=== PATIENT | female | born 1955 | race Caucasian/White ===

== ENCOUNTER 2016-11-10 18:17 | Observation (INO) | payer BC, OTHER ==
[2016-11-10] MEDS ORDERED: Nitroglycerin 2% Oint 1 GM UD Packet TOP ONE (18:54)
[2016-11-10] MEDS ORDERED: Pantoprazole 40 MG Vial IVPUSH ONE (18:55)
[2016-11-10] MEDS ORDERED: Ondansetron 4 MG/2 ML SDV IVPUSH ONE (18:55)
[2016-11-10] MEDS ORDERED: cloNIDine 0.1 MG Tab PO ONE (19:08)
[2016-11-10] MEDS ORDERED: Aspirin 81 MG Tab.Chew PO ONE (19:10)
--- NOTE | 2016-11-10 19:17 | EDM.PDOC ---
ED HISTORY OF PRESENT ILLNESS - General Chief Complaint: Chest Pain Stated Complaint: CHEST PAIN Time Seen by Provider: 11/10/16 18:17 Source: Reports: Patient History Limitations: Reports: No limitations - History of Present Illness INITIAL COMMENTS - FREE TEXT/NARRATIVE: 61 years old w f came to the ed due to Nausea, neck pressure?squeezing, abdominal pain. Her BPwas 188/89 on arrival. Pt has a strong F/H of CAD. Pt has HTN since age 39. Last upper GI was done 2 years ago and found to be neg. Symptom Onset Date: 11/10/16 Symptom Onset Time: 13:00 - Related Data Allergies/ADRs: Allergies Allergy/AdvReac Type Severity Reaction Status Date / Time No Known Allergies Allergy Verified 11/10/16 20:06 Home Meds: Home Meds Citalopram [Citalopram HBr] 20 mg PO DAILY 11/10/16 [History] Hydrochlorothiazide 25 mg PO DAILY 11/10/16 [History] Lisinopril 40 mg PO DAILY 11/10/16 [History] Metoprolol Succinate [Toprol XL] 200 mg PO DAILY 11/10/16 [History] Simvastatin 20 mg PO BEDTIME 11/10/16 [History] Nitroglycerin [Nitrostat] 0.4 mg SL 5X PRN #25 tab.subl 11/11/16 [Rx] Omeprazole Magnesium [Prilosec Otc] 20 mg PO DAILY #0 tablet.dr 11/11/16 [Rx] ED ROS GENERAL - Review of Systems Review Of Systems: See Below Constitutional: Reports: no symptoms HEENT: Reports: No symptoms Respiratory: Reports: no symptoms Cardiovascular: Reports: Chest pain, Palpitations Endocrine: Reports: no symptoms GI/Abdominal: Reports: No symptoms, Abdominal pain (epigastric) : Reports: no symptoms Musculoskeletal: Reports: no symptoms Skin: Reports: no symptoms Neurological: Reports: no symptoms Hematologic/Lymphatic: Reports: no symptoms Immunologic: Reports: no symptoms ED EXAM, GENERAL - Physical Exam Exam: See Below Exam Limited By: No limitations General Appearance: alert, WD/WN, mild distress Ears: normal external exam, normal canal, hearing grossly normal, normal TMs Ear Exam: bilateral ear: auricle normal, canal normal, TM normal Nose: normal inspection, normal mucosa, no blood Throat/Mouth: Normal inspection, Normal lips, Normal teeth, Normal gums, Normal oropharynx, Normal voice, No airway compromise Head: atraumatic, normocephalic Neck: normal inspection, supple, non-tender, full range of motion Respiratory/Chest: no respiratory distress, lungs clear, normal breath sounds, no accessory muscle use, chest non-tender Cardiovascular: normal peripheral pulses, regular rate, rhythm, no edema, no gallop, no JVD, no murmur, no rub GI/Abdominal: normal bowel sounds, no organomegaly, no distention, no abnormal bruit, no mass, tender (epigastric) (Female) Exam: Deferred Rectal (Female) Exam: Deferred Back Exam: normal inspection, full range of motion, NT Extremities: normal inspection, normal range of motion, non-tender, normal capillary refill, no pedal edema Neurological: alert, oriented, CN II-XII intact, normal cognition, normal gait, normal reflexes, no motor/sensory deficits Psychiatric: normal affect, normal mood Skin Exam: Warm, Dry, Intact, Normal color, No rash Lymphatic: no adenopathy EKG INTERPRETATION EKG Date: 11/10/16 Time: 18:55 Rhythm: NSR Rate (beats/min): 77 [place]: normal P-wave: present QRS: normal ST-T: normal QT: normal ID/PQ Interval: 206, prolonged Comparison: NA - no prior EKG Course - Vital Signs Text/Narrative:: 61 years old w f came to the ed due to Nausea, neck pressure?squeezing, abdominal pain. Her BPwas 188/89 on arrival. Pt has a strong F/H of CAD. Pt has HTN since age 39. Last upper GI was done 2 years ago and found to be neg. PE: HTN, Angina like symptoms ECG: See note above Labs: CBC, Trop, D Dimer imaging: CXR NAD Impression: Unstable angina Tx: Clonidin, ASA, Lovenox, NTG Reexam: Improved Plan: Admit to [facility] for OBS Last Recorded V/S: Last Vital Signs Temp 36.9 C 11/11/16 12:00 Pulse 61 11/11/16 12:00 Resp 20 11/11/16 12:00 BP 140/82 11/11/16 12:00 Pulse Ox 97 11/11/16 12:00 - Orders/Labs/Meds Labs: Laboratory Tests 0311/10/16 11/10/16 Range/Units 18:55 18:55 18:55 WBC 6.4 (4.5-12.0) X10-3/uL RBC 4.94 (3.23-5.20) x10(6)uL Hgb 14.5 (11.5-15.5) g/dL Hct 43.2 (30.0-51.3) % MCV 87.4 (80-96) fL MCH 29.4 (27.7-33.6) pg MCHC 33.6 (32.2-35.4) g/dL RDW 12.1 (11.5-15.5) % Plt Count 210 (125-369) X10(3)uL MPV 9.0 (7.4-10.4) fL Neut % (Auto) 58.1 (46-82) % Lymph % (Auto) 28.0 (13-37) % [place] % (Auto) 11.2 (4-12) % Eos % (Auto) 2 (1.0-5.0) % Baso % (Auto) 1 (0-2) % Neut # 3.8 (1.6-8.3) # Lymph # 1.8 (0.6-5.0) # [place] # 0.7 (0.0-1.3) # Eos # 0.1 (0.0-0.8) # Baso # 0.0 (0.0-0.2) # D-Dimer, Quantitative < 100 L (100-400) ng/mL Sodium 138 (135-145) mmol/L Potassium 3.8 (3.5-5.3) mmol/L Chloride 104 (100-110) mmol/L Carbon Dioxide 28 (23-29) mmol/L BUN 14 (8-23) mg/dL Creatinine 0.8 (0.6-1.3) mg/dL Est Cr Clr Drug Dosing TNP Estimated GFR (MDRD) > 60 (>60) BUN/Creatinine Ratio 17.5 (9-20) Glucose 122 H (80-116) mg/dL Calcium 9.1 (8.6-10.2) mg/dL Total Bilirubin 0.2 (0.1-1.3) mg/dL Direct Bilirubin 0.0 L (0.1-0.2) mg/dL AST 26 (5-27) IU/L ALT 29 H (14-26) IU/L Alkaline Phosphatase 77 (56-112) IU/L Troponin I (0.02-0.06) NG/ML Total Protein 7.0 (6.0-8.0) g/dL Albumin 4.2 (3.2-4.6) g/dL Amylase 76 (28-100) U/L 11/10/16 Range/Units 18:55 WBC (4.5-12.0) X10-3/uL RBC (3.23-5.20) x10(6)uL Hgb (11.5-15.5) g/dL Hct (30.0-51.3) % MCV (80-96) fL MCH (27.7-33.6) pg MCHC (32.2-35.4) g/dL RDW (11.5-15.5) % Plt Count (125-369) X10(3)uL MPV (7.4-10.4) fL Neut % (Auto) (46-82) % Lymph % (Auto) (13-37) % [place] % (Auto) (4-12) % Eos % (Auto) (1.0-5.0) % Baso % (Auto) (0-2) % Neut # (1.6-8.3) # Lymph # (0.6-5.0) # [place] # (0.0-1.3) # Eos # (0.0-0.8) # Baso # (0.0-0.2) # D-Dimer, Quantitative (100-400) ng/mL Sodium (135-145) mmol/L Potassium (3.5-5.3) mmol/L Chloride (100-110) mmol/L Carbon Dioxide (23-29) mmol/L BUN (8-23) mg/dL Creatinine (0.6-1.3) mg/dL Est Cr Clr Drug Dosing Estimated GFR (MDRD) (>60) BUN/Creatinine Ratio (9-20) Glucose (80-116) mg/dL Calcium (8.6-10.2) mg/dL Total Bilirubin (0.1-1.3) mg/dL Direct Bilirubin (0.1-0.2) mg/dL AST (5-27) IU/L ALT (14-26) IU/L Alkaline Phosphatase (56-112) IU/L Troponin I < 0.01 L (0.02-0.06) NG/ML Total Protein (6.0-8.0) g/dL Albumin (3.2-4.6) g/dL Amylase (28-100) U/L Meds: Medications Discontinued Medications Generic Name Dose Route Start Last Admin Trade Name Freq PRN Reason Stop Dose Admin Al Hydroxide/Mg Hydroxide 30 ml 11/11/16 11:00 11/11/16 11:10 Mag-Al Susp PO 30 ml Q4H PRN Administration upset stomach Aspirin 324 mg 11/10/16 19:10 11/10/16 19:15 Aspirin PO 11/10/16 19:11 324 mg ONETIME ONE Administration Citalopram Hydrobromide 20 mg 11/11/16 10:15 11/11/16 10:39 Celexa PO 20 mg DAILY ANDRÉS Administration Clonidine HCl 0.1 mg 11/10/16 19:08 11/10/16 19:19 Catapres PO 11/10/16 19:09 0.1 mg ONETIME ONE Administration Enoxaparin Sodium 91 mg 11/10/16 20:34 11/10/16 20:58 Lovenox SUBCUT 11/10/16 20:35 91 mg ONETIME ONE Administration Hydrochlorothiazide 25 mg 11/11/16 10:15 11/11/16 10:39 Hydrochlorothiazide PO 25 mg DAILY ANDRÉS Administration Lisinopril 40 mg 11/11/16 10:15 11/11/16 10:39 Prinivil PO 40 mg DAILY ANDRÉS Administration Metoprolol Succinate 200 mg 11/11/16 10:15 11/11/16 10:39 Toprol Xl PO 200 mg DAILY ANDRÉS Administration Nitroglycerin 1 gm 11/10/16 18:54 11/10/16 19:17 Nitro-Bid 2% TOP 11/10/16 18:55 1 gm ONETIME ONE Administration Omeprazole 20 mg 11/11/16 10:54 11/11/16 11:10 Omeprazole PO 11/11/16 10:55 20 mg NOW STA Administration Ondansetron HCl 8 mg 11/10/16 18:55 11/10/16 19:35 Zofran IVPUSH 11/10/16 18:56 8 mg ONETIME ONE Administration Pantoprazole Sodium 40 mg 11/10/16 18:55 11/10/16 19:39 Protonix Iv IVPUSH 11/10/16 18:56 40 mg ONETIME ONE Administration Simvastatin 20 mg 11/11/16 21:00 Zocor PO BEDTIME NADRÉS Sodium Chloride 10 ml 11/10/16 19:30 11/10/16 19:46 Saline Flush FLUSH 10 ml ASDIRECTED PRN Administration Keep Vein Open Departure - Departure Time of Disposition: 20:03 Disposition: Refer to Observation Condition: fair Clinical Impression: Chest pain
[2016-11-10] MEDS: Sodium Chloride 0.9% 10 ML Syringe FLUSH PRN ×3 (19:43→19:46)
[2016-11-10] MEDS ORDERED: Enoxaparin 80 MG/0.8 ML Syringe SUBCUT ONE (20:34)
[2016-11-11] MEDS ORDERED: Aspirin 325 MG Tab PO SCH (09:00)
--- NOTE | 2016-11-11 09:02 | PCM.HP ---
H&P History of Present Illness - General Date of Service: 11/11/16 Admit Problem/Dx: Admission Diagnosis/Problem Admission Diagnosis/Problem Chest pain Source of Information: Patient History Limitations: Reports: No limitations - History of Present Illness Initial Comments - Free Text/Narative: This is a 61-year-old female patient that was seen in the ER last night. She states she's had low nausea for 4 days in the last day she had some pressure in the neck area. She was brought to the ER and it resolved with nitroglycerin. She has a history of hypertension and hyperlipidemia. She denies history smoking, diabetes. Her father of [place] age 57. She states she's had a lot of stress at her house. Her sister was diagnosed with dissecting thoracic aneurysm and was transferred to [facility] and should have but survived. The sister and last week his mood and with her has caused a lot of stress. [facility] stated that all of the siblings should be tested for aneurysm. Patient to check her blood pressure has been high and that's when she started having the symptoms. She's been asymptomatic overnight. She denies shortness breath, arm pain, diaphoresis. - Related Data Allergies/Adverse Reactions: Allergies Allergy/AdvReac Type Severity Reaction Status Date / Time No Known Allergies Allergy Verified 11/10/16 20:06 Home Medications: Home Meds Citalopram [Celexa] 20 mg PO DAILY 11/10/16 [History] Hydrochlorothiazide 25 mg PO DAILY 11/10/16 [History] Lisinopril 40 mg PO DAILY 11/10/16 [History] Metoprolol Succinate [Toprol XL] 200 mg PO DAILY 11/10/16 [History] Simvastatin [Simvastatin] 20 mg PO BEDTIME 11/10/16 [History] Past Medical History HEENT History: Reports: Impaired vision, Other (see below) Other HEENT History: otosclerosis Cardiovascular History: Reports: High cholesterol, Hypertension Gastrointestinal History: Reports: GERD Genitourinary History: Reports: Renal calculus 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: Psychiatric History: Reports: Anxiety - Infectious Disease History Infectious Disease History: Reports: Chicken pox, Measles, Mumps - Past Surgical History HEENT Surgical History: Reports: Tonsillectomy, Other (see below) Other HEENT Surgeries/Procedures: right ear surgery for otoslcerosis GI Surgical History: Reports: Cholecystectomy, Colonoscopy, EGD Female Surgical History: Reports: Hysterectomy, Kidney stone extraction Social & Family History - Tobacco Use Smoking Status *Q: Never Smoker - Caffeine Use Caffeine Use: Reports: Coffee - Recreational Drug Use Recreational Drug Use: No H&P Review of Systems - Review of Systems: Review Of Systems: See Below General: Reports: no symptoms HEENT: Reports: other (Neck pain otherwise denied) Pulmonary: Reports: no symptoms Cardiovascular: Reports: no symptoms Gastrointestinal: Reports: No symptoms Genitourinary: Reports: no symptoms Musculoskeletal: Reports: no symptoms Skin: Reports: no symptoms Psychiatric: Reports: anxiety. Denies: depression Neurological: Reports: no symptoms Hematologic/Lymphatic: Reports: no symptoms Immunologic: Reports: no symptoms Exam - Exam Exam: See Below - Vital Signs Vital Signs: Last Vital Signs Temp 97.6 F 11/11/16 01:15 Pulse 74 11/10/16 20:15 Resp 15 11/11/16 04:00 BP 113/66 11/11/16 01:15 Pulse Ox 94 L 11/11/16 04:00 Weight: 199 lb 11.2 oz - Exam General: alert, oriented, cooperative HEENT: PERRLA, Conjunctiva clear, EACs clear, EOMI, Hearing intact, Mucosa moist & pink, Posterior pharynx clear, TMs clear Neck: supple, trachea midline. No: carotid bruit Lungs: Clear to auscultation, Normal respiratory effort Cardiovascular: regular rate, regular rhythm, normal S1, normal S2. No: systolic murmur, diastolic murmur Abdomen: normal bowel sounds, soft. No: organomegaly, guarding, rigidity, rebound, tenderness Back Exam: normal inspection, full range of motion, NT Extremities: normal inspection Skin: warm Neurological: normal speech, normal tone Neuro Extensive - Mental Status: alert, oriented x3, normal mood/affect, normal cognition, memory intact Psychiatric: alert, normal affect, normal mood - Patient Data Lab Results last 24 hrs: Laboratory Results - last 24 hr 11/11/16 Range/Units 01:25 Troponin I < 0.01 L (0.02-0.06) NG/ML Result Diagrams: 11/10/16 18:55 11/10/16 18:55 EKG INTERPRETATION EKG Interpretation Comments: EKG done at 1:20 AM 11/11/16shows normal sinus rhythm with reverse T waves in lead 3 and V1 only. EKG done 1850 on 11/10/16 showed normal sinus rhythm without ST abnormalities. *Q Meaningful Use (ADM) - VTE *Q VTE Criteria *Q: - Stroke *Q Stroke Criteria *Q: - AMI *Q AMI Criteria *Q: - Problem List (1) Chest pain SNOMED Code(s): 27621313 ICD Code: R07.9 - CHEST PAIN, UNSPECIFIED Status: Acute Current Visit: Yes Problem List Initiated/Reviewed/Updated: Yes Orders Last 24hrs: Active Orders 24 hr Category Date Time Status Patient Status [ADT] Routine ADT 11/10/16 20:13 Active Ambulate [RC] PER UNIT ROUTINE Care 11/10/16 20:13 Active EKG Documentation Completion [RC] ASDIRECTED Care 11/10/16 20:19 Active Oxygen Therapy [RC] PRN Care 11/10/16 20:13 Active Pulse Oximetry [RC] PRN Care 11/10/16 20:13 Active Telemetry Monitoring [Cardiac Monitoring] [RC] 08,16,00 Care 11/10/16 20:22 Active Vital Signs [RC] 08,12,16,20,00,04 Care 11/10/16 20:13 Active Code Status [Resuscitation Status] Routine Resus Stat 11/10/16 20:21 Ordered EKG 12 Lead [EK] Routine Ther 11/11/16 01:00 Ordered Medication Orders Sodium Chloride (Saline Flush) 10 ml FLUSH ASDIRECTED PRN PRN Reason: Keep Vein Open Last Admin: 11/10/16 19:46 Dose: 10 ml Admin: 11/10/16 19:44 Dose: 10 ml Admin: 11/10/16 19:43 Dose: 10 ml Assessment/Plan Comment:: 1. Admit observation with telemetry. 2. Serial troponins and EKGs. 3. Okay to take regular medications. 4. Regular diet. 5. Up ad rica. 6. Order echocardiogram to the chest pain and family history of aortic dissection/thoracic
[2016-11-11] MEDS ORDERED: Metoprolol Succinate 100 MG Tab.ER PO SCH (10:15)
[2016-11-11] MEDS ORDERED: Citalopram 20 MG Tab PO SCH (10:15)
[2016-11-11] MEDS ORDERED: Hydrochlorothiazide 25 MG Tab PO SCH (10:15)
[2016-11-11] MEDS ORDERED: Omeprazole 20 MG Cap.CR PO STA (10:54)
[2016-11-11] MEDS ORDERED: Aluminum Hydroxide/Magnesium Hydroxide Susp 30 ML Cup PO PRN (11:00)
[2016-11-11 12:30] VITALS: BP 140/82
--- NOTE | 2016-11-11 12:43 | PCM.SN ---
- Free Text/Narrative Note: Patient feels better. Has no chest pain. We'll nausea after eating that is relieved with Mylanta and Prilosec.
--- NOTE | 2016-11-11 12:48 | PCM.DCSUM1 ---
Discharge Summary - Hospital Course Free Text/Narrative:: Hospital course-patient was asymptomatic tissues at the ER with nitroglycerin paste. Was removed and she's done well overnight with no chest pain. She'll nausea cruciate. Relieved with Prilosec and Mylanta. EKG normal sinus rhythm with nonspecific changes on one out of 3. Troponins x3 are negative. Patient has a lot of stress at home to sister moving in with her for a short time. Brief History: This is a 61-year-old female patient that was seen in the ER last night. She states she's had low nausea for 4 days in the last day she had some pressure in the neck area. She was brought to the ER and it resolved with nitroglycerin. She has a history of hypertension and hyperlipidemia. She denies history smoking, diabetes. Her father of [place] age 57. She states she 's had a lot of stress at her house. Her sister was diagnosed with dissecting thoracic aneurysm and was transferred to [facility] and should have but survived. The sister and last week his mood and with her has caused a lot of stress. [facility] stated that all of the siblings should be tested for aneurysm. Patient to check her blood pressure has been high and that's when she started having the symptoms. She's been asymptomatic overnight. She denies shortness breath, arm pain, diaphoresis. - Discharge Data Discharge Date: 11/11/16 Discharge Disposition: Home, Self-Care 01 Condition: Good - Discharge Diagnosis/Problem(s) (1) Chest pain SNOMED Code(s): 27625082 ICD Code: R07.9 - CHEST PAIN, UNSPECIFIED Status: Acute Current Visit: Yes - Patient Instructions Diet: Regular Diet as Tolerated Activity: As Tolerated Driving: Do Not Drive Showering/Bathing: May Shower Other/Special Instructions: 1. Echocardiogram in the a.m. here at [facility]. 2. Recheck with Dr. Goldman one week with a stress test. - Discharge Plan Prescriptions/Med Rec: Nitroglycerin [Nitrostat] 0.4 mg SL 5XDAY PRN #25 tab.subl PRN Reason: Chest Pain Omeprazole Magnesium [Prilosec Otc] 20 mg PO DAILY #0 tablet. Home Medications: Home Meds Citalopram [Citalopram HBr] 20 mg PO DAILY 11/10/16 [History] Hydrochlorothiazide 25 mg PO DAILY 11/10/16 [History] Lisinopril 40 mg PO DAILY 11/10/16 [History] Metoprolol Succinate [Toprol XL] 200 mg PO DAILY 11/10/16 [History] Simvastatin 20 mg PO BEDTIME 11/10/16 [History] Nitroglycerin [Nitrostat] 0.4 mg SL 5XDAY PRN #25 tab.subl 11/11/16 [Rx] Omeprazole Magnesium [Prilosec Otc] 20 mg PO DAILY #0 tablet. 11/11/16 [Rx] Forms: ED Department Discharge Referrals: Basil Goldman MD [Primary Care Provider] - - Discharge Summary/Plan Comment DC Time >30 min.: No - Patient Data Vitals - Most Recent: Last Vital Signs Temp 98.4 F 11/11/16 12:00 Pulse 61 11/11/16 12:00 Resp 20 11/11/16 12:00 BP 140/82 11/11/16 12:00 Pulse Ox 97 11/11/16 12:00 Weight - Most Recent: 199 lb 11.2 oz I&O - Last 24 hours: Intake & Output 11/10/16 11/11/16 11/11/16 22:59 06:59 14:59 Intake Total 330 Balance 330 Lab Results - Last 24 hrs: Laboratory Results - last 24 hr 11/11/16 11/11/16 Range/Units 01:25 09:30 Troponin I < 0.01 L < 0.01 L (0.02-0.06) NG/ML Med Orders - Current: Current Medications Al Hydroxide/Mg Hydroxide (Mag-Al Susp) 30 ml PO Q4H PRN PRN Reason: upset stomach Last Admin: 11/11/16 11:10 Dose: 30 ml Citalopram Hydrobromide (Celexa) 20 mg PO DAILY [facility] Last Admin: 11/11/16 10:39 Dose: 20 mg Hydrochlorothiazide (Hydrochlorothiazide) 25 mg PO DAILY [facility] Last Admin: 11/11/16 10:39 Dose: 25 mg Lisinopril (Prinivil) 40 mg PO DAILY [facility] Last Admin: 11/11/16 10:39 Dose: 40 mg Metoprolol Succinate (Toprol Xl) 200 mg PO DAILY [facility] Last Admin: 11/11/16 10:39 Dose: 200 mg Simvastatin (Zocor) 20 mg PO BEDTIME ANDRÉS Sodium Chloride (Saline Flush) 10 ml FLUSH ASDIRECTED PRN PRN Reason: Keep Vein Open Last Admin: 11/10/16 19:46 Dose: 10 ml Discontinued Medications Aspirin (Aspirin) 324 mg PO ONETIME ONE Stop: 11/10/16 19:11 Last Admin: 11/10/16 19:15 Dose: 324 mg Clonidine HCl (Catapres) 0.1 mg PO ONETIME ONE Stop: 11/10/16 19:09 Last Admin: 11/10/16 19:19 Dose: 0.1 mg Enoxaparin Sodium (Lovenox) 91 mg SUBCUT ONETIME ONE Stop: 11/10/16 20:35 Last Admin: 11/10/16 20:58 Dose: 91 mg Nitroglycerin (Nitro-Bid 2%) 1 gm TOP ONETIME ONE Stop: 11/10/16 18:55 Last Admin: 11/10/16 19:17 Dose: 1 gm Omeprazole (Omeprazole) 20 mg PO NOW STA Stop: 11/11/16 10:55 Last Admin: 11/11/16 11:10 Dose: 20 mg Ondansetron HCl (Zofran) 8 mg IVPUSH ONETIME ONE Stop: 11/10/16 18:56 Last Admin: 11/10/16 19:35 Dose: 8 mg Pantoprazole Sodium (Protonix Iv) 40 mg IVPUSH ONETIME ONE Stop: 11/10/16 18:56 Last Admin: 11/10/16 19:39 Dose: 40 mg *Q Meaningful Use (DIS) - VTE *Q VTE Criteria *Q: - Stroke *Q Stroke Criteria *Q: - AMI *Q AMI Criteria *Q:
[2016-11-11] MEDS ORDERED: Simvastatin 20 MG Tab PO SCH (21:00)
--- NOTE | 2016-11-12 09:16 | CR ---
INDICATION: Chest pain. CHEST: An AP upright portable view of the chest 11/10/2016 was compared with and revealed the heart to remain normal in size and shape. The aorta is minimally tortuous. Very poor inspiration is noted, emphasizing markings. Evidence of exogenous obesity is again seen. Overlying EKG leads are noted. IMPRESSION: No acute process. MTDD
== END 2016-11-11 01:30 | disposition home or self-care (01) ==
LOC: FB.ED 18:17 → FB.MS 20:11
PROVIDERS: ADMIT Emergency Medicine; ATTEND Family Medicine
DX: R07.9 Chest pain, unspecified (principal); I10 Essential (primary) hypertension; E78.5 Hyperlipidemia, unspecified; E78.00 Pure hypercholesterolemia, unspecified; Z79.899 Other long term (current) drug therapy; K21.9 Gastro-esophageal reflux disease without esophagitis; F41.9 Anxiety disorder, unspecified; Z87.442 Personal history of urinary calculi; Z90.49 Acquired absence of other specified parts of digestive tract; Z98.890 Other specified postprocedural states; Z90.710 Acquired absence of both cervix and uterus
CPT/HCPCS: 36415; 71010; 80048; 80076; 82150; 84484; 85025; 85379; 93005; 96372; 96374; 96375; 99285; A9270; C9113; G0378; J1650; J2405; J7050

== ENCOUNTER 2016-11-23 19:35 | Emergency (ER) | payer OTHER ==
[2016-11-23] MEDS ORDERED: ALPRAZolam 0.5 MG Tab PO ONE (20:00)
[2016-11-23 20:11] VITALS: BP 157/100
--- NOTE | 2016-11-24 01:31 | ER ---
DATE SEEN: 11/23/2016 CHIEF COMPLAINT: Palpitations. HISTORY OF PRESENT ILLNESS: This is a 61-year-old female, who complains of palpitations, that has been going on for more than 2 weeks now. She had some pressure in the chest and inability to sleep and stress. Her sister was recently diagnosed with an aneurysm. She has had elevated blood pressure and takes lisinopril and metoprolol. She also takes Celexa for generalized anxiety disorder. She was admitted 2 weeks ago, overnight and ruled out for coronary artery disease or acute coronary syndrome and a stress test as an outpatient next week with Dr. Goldman. REVIEW OF SYSTEMS: She denies visual disturbance, nausea, vomiting, or shortness of breath. ALLERGIES: No known allergies. PHYSICAL EXAMINATION: VITAL SIGNS: Blood pressure 154/101, pulse is 62, and temperature 98.0. ENT: Negative. Eyes; CHINEDU. NECK: Supple. CHEST: Clear breath sounds. CARDIOVASCULAR: Normal S1, S2. MENTAL STATUS: Slightly anxious. IMPRESSION: Anxiety attack. PLAN: Xanax 0.5 mg p.o. b.i.d. p.r.n. Advised to follow Dr. Goldman next week as previously scheduled. Return to the ED with any worsening symptoms. Continue current prescriptions for blood pressure. /[id number] RIANA/NATASHA
== END 2016-11-23 20:10 | disposition home or self-care (01) ==
LOC: FB.ED 19:35
DX: F41.9 Anxiety disorder, unspecified (principal)
CPT/HCPCS: 99282; A9270; 99283

== ENCOUNTER 2019-02-19 13:50 | Emergency (ER) | payer MEDICARE, OTHER ==
--- NOTE | 2019-02-19 14:38 | EDM.PDOC ---
ED HPI GENERAL MEDICAL PROBLEM - General Chief Complaint: Cardiovascular Problem Stated Complaint: BLOODPRESSURE IS HIGH Time Seen by Provider: 02/19/19 14:28 Source of Information: Reports: Patient History Limitations: Reports: No Limitations - History of Present Illness INITIAL COMMENTS - FREE TEXT/NARRATIVE: pleasant 64 yo female presents with concern for episode of dizziness at home lasting about 15 minutes when she went to get up from the couch this afternoon. She had been lying down and stood up quickly, then had to sit back down. She reports feeling tunnel vision, weird feeling all over her body, briefly nauseous. No chest pain. No palpitations. Slightly short of breath but this has been going on for about the past year, unchanged. No cough. Has otherwise been well, except for at 430 this morning she awoke to a sharp pain in her left chest which lasted maybe a minute, and went away without any intervention. No associated symptoms such as nausea, sweating, shortness of breath changed from baseline, or dizziness at that time. She checked her blood pressure this afternoon when this episode happened and it was high, 197/89. Notes that she doesn't drink much water generally, so wondering if that contributes. Extensive family history of heart disease - father of VA age 57, brother with 2 valve replacements, sister w/ history of dissecting aneurysm, another sister with renal artery problems (not sure what ), brother with a pacemaker. She herself is on 3 BP medications and states she normally runs in the 130's systolic. Former smoker, about 4 years, quite 40 years ago. On simvastatin for HLD. No history of diabetes. - Related Data Allergies Allergy/AdvReac Type Severity Reaction Status Date / Time No Known Allergies Allergy Verified 02/19/19 14:03 Home Meds: Home Meds Citalopram [Citalopram HBr] 20 mg PO BEDTIME 11/10/16 [History] Hydrochlorothiazide 25 mg PO DAILY 11/10/16 [History] Lisinopril 40 mg PO DAILY 11/10/16 [History] Metoprolol Succinate [Toprol XL] 200 mg PO DAILY 11/10/16 [History] Simvastatin 20 mg PO BEDTIME 11/10/16 [History] Omeprazole Magnesium [Prilosec Otc] 20 mg PO DAILY #0 tablet. 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: Psychiatric History: Reports: Anxiety Endocrine/Metabolic History: Denies: Diabetes, Type II - Infectious Disease History Infectious Disease History: Reports: Chicken Pox, Measles, Mumps - Past Surgical History HEENT Surgical History: Reports: Tonsillectomy, Other (See Below) Social & Family History - Family History Cardiac: Reports: Aneurysm, Heart Valve Replacement, Hypertension, VA - Tobacco Use Smoking Status *Q: Former Smoker - Caffeine Use Caffeine Use: Reports: Coffee - Alcohol Use Alcohol Use History: No - Recreational Drug Use Recreational Drug Use: No - Living Situation & Occupation Living situation: Reports: Occupation: Retired Social History Comment: 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 Denies: Wheezing, Pleuritic Chest Pain, Cough Cardiovascular: Denies: Palpitations Endocrine: Denies: Polydypsia, Polyuria GI/Abdominal: Denies: Abdominal Pain, Diarrhea, Nausea, Vomiting : Reports: No Symptoms Musculoskeletal: Reports: No Symptoms Skin: Reports: No Symptoms Neurological: Reports: Headache. Denies: Numbness, Tingling, Weakness Hematologic/Lymphatic: Denies: Easy Bleeding, Easy Bruising ED EXAM, GENERAL - Physical Exam Exam: See Below Free Text/Narrative:: Gen.: Alert, very pleasant distress. Pupils are equal and reactive, conjunctiva clear. Facial muscles symmetric. Tympanic membranes are clear bilaterally with normal light reflex and throat is without erythema, mucous membranes are moist there is no tonsillar enlargement or exudates. No cervical lymphadenopathy. Lungs are clear throughout with good air movement, no wheezing or crackles. Heart is regular rate and rhythm negative murmur. Abdomen positive bowel sounds , soft and nontender. Peripheral pulses +2 in both the upper and lower extremities, there is no lower extremity edema. Strength equal in both the upper and lower extremities bilaterally and her gait is normal. No skin rashes or lesions noted, no joint swelling EKG INTERPRETATION Rhythm: NSR [place]: Normal P-Wave: Present ST-T: Normal Course - Vital Signs Text/Narrative:: episode of near syncope this afternoon, asymptomatic now. Also with CP this morning at 4:30am, very transient, no associated symptoms. elevated BP on 3 drug therapy, hx HLD, extensive family history cardiac disease, chronic shortness of breath over last year which is unchanged. No diabetes and only very remote history of smoking. EKG appears normal, sinus rhythm, SD interval borderline on increased, no st changes, t waves normal. Will get labs, cxr. Last Recorded V/S: Last Vital Signs Temp 36.7 C 02/19/19 13:53 Pulse 69 02/19/19 15:00 Resp 18 02/19/19 15:00 BP 138/94 H 02/19/19 15:00 Pulse Ox 96 02/19/19 15:00 Orthostatic Blood Pressure [ 169/94 Standing] Orthostatic Blood Pressure [ 149/92 Sitting] Orthostatic Blood Pressure [ 150/90 Supine] - Orders/Labs/Meds Orders: Active Orders 24 hr Category Date Time Status EKG Documentation Completion [RC] ASDIRECTED Care 02/19/19 14:27 Active Chest 2V [CR] Stat Exams 02/19/19 14:26 Taken EKG 12 Lead [EK] Routine Ther 02/19/19 14:26 Ordered Labs: Laboratory Tests 02/19/19 02/19/19 02/19/19 Range/Units 14:10 14:10 14:10 WBC 7.4 (4.5-12.0) X10-3/uL RBC 5.07 (3.23-5.20) x10(6)uL Hgb 15.3 (11.5-15.5) g/dL Hct 45.1 (30.0-51.3) % MCV 88.9 (80-96) fL MCH 30.2 (27.7-33.6) pg MCHC 34.0 (32.2-35.4) g/dL RDW 12.5 (11.5-15.5) % Plt Count 223 (125-369) X10(3)uL MPV 10.1 (7.4-10.4) fL Neut % (Auto) 63.8 (46-82) % Lymph % (Auto) 24.7 (13-37) % [place] % (Auto) 9.3 (4-12) % Eos % (Auto) 2 (1.0-5.0) % Baso % (Auto) 1 (0-2) % Neut # (Auto) 4.8 (1.6-8.3) # Lymph # (Auto) 1.8 (0.6-5.0) # [place] # (Auto) 0.7 (0.0-1.3) # Eos # (Auto) 0.1 (0.0-0.8) # Baso # (Auto) 0.0 (0.0-0.2) # PT 10.1 (8.7-11.1) INR 1.04 (0.89-1.13) D-Dimer, Quantitative (0.0-0.59) mg/LFEU Sodium 142 (135-145) mmol/L Potassium 3.8 (3.5-5.3) mmol/L Chloride 106 (100-110) mmol/L Carbon Dioxide 27 (21-32) mmol/L BUN 16 (7-18) mg/dL Creatinine 0.9 (0.55-1.02) mg/dL Est Cr Clr Drug Dosing 65.13 mL/min Estimated GFR (MDRD) > 60 (>60) BUN/Creatinine Ratio 17.8 (9-20) Glucose 129 H (80-116) mg/dL Calcium 9.2 (8.6-10.2) mg/dL Magnesium 2.1 (1.8-2.5) mg/dL Troponin I (<0.017-0.056) ng/mL 02/19/19 02/19/19 Range/Units 14:10 14:10 WBC (4.5-12.0) X10-3/uL RBC (3.23-5.20) x10(6)uL Hgb (11.5-15.5) g/dL Hct (30.0-51.3) % MCV (80-96) fL MCH (27.7-33.6) pg MCHC (32.2-35.4) g/dL RDW (11.5-15.5) % Plt Count (125-369) X10(3)uL MPV (7.4-10.4) fL Neut % (Auto) (46-82) % Lymph % (Auto) (13-37) % [place] % (Auto) (4-12) % Eos % (Auto) (1.0-5.0) % Baso % (Auto) (0-2) % Neut # (Auto) (1.6-8.3) # Lymph # (Auto) (0.6-5.0) # [place] # (Auto) (0.0-1.3) # Eos # (Auto) (0.0-0.8) # Baso # (Auto) (0.0-0.2) # PT (8.7-11.1) INR (0.89-1.13) D-Dimer, Quantitative 0.34 (0.0-0.59) mg/LFEU Sodium (135-145) mmol/L Potassium (3.5-5.3) mmol/L Chloride (100-110) mmol/L Carbon Dioxide (21-32) mmol/L BUN (7-18) mg/dL Creatinine (0.55-1.02) mg/dL Est Cr Clr Drug Dosing mL/min Estimated GFR (MDRD) (>60) BUN/Creatinine Ratio (9-20) Glucose (80-116) mg/dL Calcium (8.6-10.2) mg/dL Magnesium (1.8-2.5) mg/dL Troponin I < 0.017 L (<0.017-0.056) ng/mL - Re-Assessments/Exams Free Text/Narrative Re-Assessment/Exam: 02/19/19 15:55 labs returned within normal limits. Chest x-ray appears similar to prior. Patient feels completely well at this time, all symptoms resolved. Discussed admission for cardiac rule-out vs discharge with close followup and stress test later this week if possible. Patient recalls having a similar incident very recently with almost the exam same symptoms, and has not had any change in symptoms or other activity limitations in between. Offered admission , but she would much prefer to go home. She is agreeable to repeat stress test. Also recommend evaluation for chronic shortness of breath in the past year by PCP. 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 Given her being on 3-drug therapy for HTN, I wonder also if she has ever had a workup for secondary hypertension. call placed to PCP office recommending stress test. 02/19/19 16:06 Departure - Departure Time of Disposition: 16:00 Disposition: Home, Self-Care 01 Condition: Good Clinical Impression: Near syncope - Discharge Information *PRESCRIPTION DRUG MONITORING PROGRAM REVIEWED*: Not Applicable *COPY OF PRESCRIPTION DRUG MONITORING REPORT IN PATIENT LEBRON: Not Applicable Instructions: Heart Attack, [id number], Syncope, [id number] Referrals: Josefina Dior ICT SYSTEMS TEST ENGINEER [Primary Care Provider] - Forms: ED Department Discharge Additional Instructions: BP will naturally elevate if you are anxious, have recently been up and moving around, or if your muscles are tense. no signs of heart attack today regarding the episode at 430 this AM as we discussed. If symptoms worsen or return, or you have symptoms concerning for a heart attack, return to ER, even if its only a few hours from now. Elevated BP (>180 after following steps below) or associated with chest pain or a headache should be rechecked. checking BP at home: sit quietly for 5-10 minutes in a chair next to a table feet on floor arm relaxed recommend taking BP cuff to next dr's appointment for comparing with theirs to see if it is accurate make appointment with primary call placed by ER regarding getting a stress test scheduled for later this week. If you have not heard from them by tomorrow afternoon, I recommend calling PCP office talk with PCP about chronic shortness of breath also wonder about secondary reasons for blood pressure elevated if you are still having difficulty with control - someone may have already tested for this , but you could ask PCP - My Orders Last 24 Hours: My Active Orders 02/19/19 14:26 Chest 2V [CR] Stat EKG 12 Lead [EK] Routine 02/19/19 14:27 EKG Documentation Completion [RC] ASDIRECTED - Assessment/Plan Last 24 Hours: My Active Orders 02/19/19 14:26 Chest 2V [CR] Stat EKG 12 Lead [EK] Routine 02/19/19 14:27 EKG Documentation Completion [RC] ASDIRECTED
[2019-02-19 16:07] VITALS: BP 115/78
--- NOTE | 2019-02-20 09:15 | CR ---
INDICATION: Shortness of breath, former smoker. CHEST: Two PA views and a lateral view of the chest were obtained 02/19/19 and compared with 11/10/16 and 01/01/12. The heart remains normal in size and shape. Minimal calcification is noted in the arch of the aorta. Overlying EKG leads are noted. A definite active infiltrate or effusion was not identified. Bony structures appear to be fairly intact. IMPRESSION: No acute process. MTDD
== END 2019-02-19 16:20 | disposition home or self-care (01) ==
LOC: FB.ED 13:50
DX: R55 Syncope and collapse (principal); E78.00 Pure hypercholesterolemia, unspecified; I10 Essential (primary) hypertension; E11.9 Type 2 diabetes mellitus without complications; Z79.899 Other long term (current) drug therapy; Z87.891 Personal history of nicotine dependence
CPT/HCPCS: 36415; 71046; 80048; 83735; 84484; 85025; 85379; 85610; 93005; 99284-25

== ENCOUNTER 2019-05-21 15:21 | Emergency (ER) | payer MEDICARE, OTHER ==
[2019-05-21] MEDS ORDERED: LORazepam 0.5 MG Tab PO ONE (15:39)
[2019-05-21] MEDS ORDERED: Ondansetron 4 MG/2 ML SDV IVPUSH ONE (16:37)
[2019-05-21] MEDS ORDERED: Iopamidol 755 Mg/ML 100 ML Bottle IV ONE (16:49)
--- NOTE | 2019-05-21 16:54 | EDM.PDOC ---
<Tiffanie Frost - Last Filed: 05/21/19 18:09> ED HPI GENERAL MEDICAL PROBLEM - General Chief Complaint: Cardiovascular Problem Stated Complaint: HIGH BP AND INDIGESTION Time Seen by Provider: 05/21/19 16:30 Source of Information: Reports: Patient History Limitations: Reports: No Limitations - History of Present Illness INITIAL COMMENTS - FREE TEXT/NARRATIVE: Patient is 64 yo female who presents with chest pain/abdominal pain since this morning, she went to coffee as usual but when she got home she started having pain and has not let up. She took her blood pressure and it was 190/100. She tried Protonix but symptoms did not improve. Nothing makes it better or worse. Has associated nausea and shortness of breath, like she can't catch her air. She has had the shortness of breath for 3 years and has had extensive workup for this including echo, chest x-ray, EGD. Was found to have gastritis and placed on Protonix. She states TUMS or Pepcid have not made it better. She denies vomiting, fever, chills, sinus symptoms, difficulty swallowing, diarrhea. She has history of cholecystectomy. Strong family history of heart problems. Her mother of dissecting aortic aneurysm and her sister had aortic aneurysm found when she was 4. She has two brothers that have pacemakers. Onset: Today Onset Date: 05/21/19 Onset Time: 09:00 Duration: Hour(s): (7), Constant Location: Reports: Chest, Abdomen, Back. Denies: Radiates to Quality: Reports: Pressure, Other (feels like she has to belch but can't) Severity: Moderate Improves with: Reports: None Worsens with: Reports: None Context: Denies: Activity, Exercise, Lifting Associated Symptoms: Reports: Chest Pain, Shortness of Breath (nausea without vomiting). 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: Other Medication(s) (Protonix but not better) Epigastric Pain Score (Numeric/FACES): 4 - Related Data Allergies Allergy/AdvReac Type Severity Reaction Status Date / Time No Known Allergies Allergy Verified 05/21/19 15:53 Home Meds: Home Meds RX: Hydrochlorothiazide 25 mg PO DAILY 11/10/16 [History] RX: Lisinopril 40 mg PO DAILY 11/10/16 [History] RX: Metoprolol Succinate [Toprol XL] 200 mg PO DAILY 11/10/16 [History] RX: Simvastatin 20 mg PO BEDTIME 11/10/16 [History] Escitalopram [Lexapro] 10 mg PO DAILY 05/21/19 [History] Levothyroxine Sodium [Synthroid] 25 mcg PO DAILY 05/21/19 [History] RX: Pantoprazole 20 mg PO DAILY 05/21/19 [History] Past Medical History HEENT History: Reports: Impaired Vision, Other (See Below) Other HEENT History: otosclerosis Cardiovascular History: Reports: High Cholesterol, Hypertension Gastrointestinal History: Reports: GERD Genitourinary History: Reports: Renal Calculus 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: Psychiatric History: Reports: Anxiety - Infectious Disease History Infectious Disease History: Reports: Chicken Pox, Measles, Mumps - Past Surgical History HEENT Surgical History: Reports: Tonsillectomy, Other (See Below) Female Surgical History: Reports: Section Neurological Surgical History: Reports: Discectomy - Past Imaging History Past Imaging History: Reports: Cardiac Echo (2016), CAT Scan (2011), Xray (2018) Social & Family History - Family History Family Medical History: Noncontributory Cardiac: Reports: Aneurysm (mom of aortic dissection and sister dx at 49 with aortic aneursym), Heart Valve Replacement, Hypertension, [place], Pacemaker (2 brothers) - Tobacco Use Smoking Status *Q: Never Smoker - Caffeine Use Caffeine Use: Reports: None - Recreational Drug Use Recreational Drug Use: No - Living Situation & Occupation Living situation: Reports: Occupation: Retired ED ROS GENERAL - Review of Systems Review Of Systems: See Below Constitutional: Reports: No Symptoms HEENT: Reports: No Symptoms Respiratory: Reports: Shortness of Breath. Denies: Wheezing, Pleuritic Chest Pain, Cough Cardiovascular: Reports: Chest Pain, Blood Pressure Problem, Dyspnea on Exertion. Denies: Palpitations Endocrine: Reports: Fatigue GI/Abdominal: Reports: Abdominal Pain, Nausea. Denies: Constipation, Diarrhea, Difficulty Swallowing, Vomiting : Reports: No Symptoms Musculoskeletal: Reports: Back Pain. Denies: Neck Pain, Arm Pain Skin: Reports: No Symptoms Neurological: Reports: No Symptoms Psychiatric: Reports: No Symptoms ED EXAM, GENERAL - Physical Exam Exam: See Below Exam Limited By: No Limitations General Appearance: Alert, WD/WN, Anxious Eye Exam: Bilateral Eye: EOMI, PERRL Ears: Normal External Exam, Normal TMs Nose: Normal Inspection, Normal Mucosa Throat/Mouth: Normal Inspection, Normal Lips, Normal Teeth, Normal Gums, Normal Oropharynx, Normal Voice, No Airway Compromise Head: Atraumatic, Normocephalic Neck: Normal Inspection, Supple, Non-Tender, Full Range of Motion. No: Carotid Bruit, Lymphadenopathy (R), Lymphadenopathy (L) Respiratory/Chest: No Respiratory Distress, Lungs Clear, Normal Breath Sounds, No Accessory Muscle Use, Chest Non-Tender Cardiovascular: Normal Peripheral Pulses, Regular Rate, Rhythm, No Edema, No Murmur, No Rub Peripheral Pulses: 2+: Radial (L), Radial (R), Posterior Tibial (L), Posterior Tibial (R), Dorsalis Pedis (L), Dorsalis Pedis (R) GI/Abdominal: Normal Bowel Sounds, Soft, No Organomegaly, No Distention, No Mass , Guarding, Tender. No: Rigid, Rebound, Hepatomegaly, Splenomegaly Back Exam: Normal Inspection, Full Range of Motion. No: CVA Tenderness (R), CVA Tenderness (L), Paraspinal Tenderness, Vertebral Tenderness Extremities: Normal Inspection, Normal Range of Motion, No Pedal Edema Neurological: Alert, Oriented, Normal Cognition Psychiatric: Normal Affect, Anxious Skin Exam: Warm, Dry, Intact Lymphatic: No Adenopathy EKG INTERPRETATION EKG Date: 05/21/19 Time: 16:05 Rhythm: NSR Rate (Beats/Min): 58 [place]: Normal P-Wave: Present QRS: Normal ST-T: Normal QT: Normal Comparison: NA - No Prior EKG Course - Vital Signs Last Recorded V/S: Last Vital Signs Temp 36.7 C 05/21/19 15:25 Pulse 56 L 05/21/19 17:37 Resp 16 05/21/19 15:25 BP 141/80 H 05/21/19 17:37 Pulse Ox 97 05/21/19 16:02 - Orders/Labs/Meds Orders: Active Orders 24 hr Category Date Time Status EKG Documentation Completion [RC] ASDIRECTED Care 05/21/19 15:40 Active Ang Abdomen [CT] Stat Exams 05/21/19 16:39 Ordered Ang Chest [CT] Stat Exams 05/21/19 16:39 Taken Sodium Chloride 0.9% [Saline Flush] Med 05/21/19 17:30 Active 10 ml FLUSH ASDIRECTED PRN EKG 12 Lead [EK] Routine Ther 05/21/19 15:40 Ordered Medication Orders Sodium Chloride (Saline Flush) 10 ml FLUSH ASDIRECTED PRN PRN Reason: IV Use Last Admin: 05/21/19 17:30 Dose: 10 ml Labs: Laboratory Tests 05/21/19 05/21/19 05/21/19 Range/Units 16:10 16:10 16:10 WBC 8.5 (4.5-12.0) X10-3/uL RBC 5.31 H (3.23-5.20) x10(6)uL Hgb 16.4 H (11.5-15.5) g/dL Hct 47.0 (30.0-51.3) % MCV 88.6 (80-96) fL MCH 30.9 (27.7-33.6) pg MCHC 34.9 (32.2-35.4) g/dL RDW 12.4 (11.5-15.5) % Plt Count 228 (125-369) X10(3)uL MPV 9.1 (7.4-10.4) fL Neut % (Auto) 73.0 (46-82) % Lymph % (Auto) 17.5 (13-37) % [place] % (Auto) 8.0 (4-12) % Eos % (Auto) 1 (1.0-5.0) % Baso % (Auto) 1 (0-2) % Neut # (Auto) 6.1 (1.6-8.3) # Lymph # (Auto) 1.5 (0.6-5.0) # [place] # (Auto) 0.7 (0.0-1.3) # Eos # (Auto) 0.1 (0.0-0.8) # Baso # (Auto) 0.1 (0.0-0.2) # Sodium 142 (135-145) mmol/L Potassium 3.9 (3.5-5.3) mmol/L Chloride 103 (100-110) mmol/L Carbon Dioxide 31 (21-32) mmol/L BUN 13 (7-18) mg/dL Creatinine 0.9 (0.55-1.02) mg/dL Est Cr Clr Drug Dosing 65.13 mL/min Estimated GFR (MDRD) > 60 (>60) BUN/Creatinine Ratio 14.4 (9-20) Glucose 108 (80-116) mg/dL Calcium 9.2 (8.6-10.2) mg/dL Total Bilirubin 0.5 (0.1-1.3) mg/dL AST 26 H (5-25) IU/L ALT 48 H (12-36) U/L Alkaline Phosphatase 91 (56-112) IU/L Troponin I < 0.017 L (<0.017-0.056) ng/mL Total Protein 7.8 (6.0-8.0) g/dL Albumin 4.0 (3.2-4.6) g/dL Globulin 3.8 g/dL Albumin/Globulin Ratio 1.1 Amylase 106 (25-115) U/L Meds: Medications Generic Name Dose Route Start Last Admin Trade Name Freq PRN Reason Stop Dose Admin Sodium Chloride 10 ml 05/21/19 17:30 05/21/19 17:30 Saline Flush FLUSH 10 ml ASDIRECTED PRN Administration IV Use Discontinued Medications Generic Name Dose Route Start Last Admin Trade Name Freq PRN Reason Stop Dose Admin Famotidine 20 mg/ Premix 50 mls @ 200 mls/hr 05/21/19 18:09 05/21/19 18:25 IV 05/21/19 18:10 200 mls/hr ONETIME ONE Administration Iopamidol 100 ml 05/21/19 16:49 05/21/19 17:14 Isovue-370 (76%) IV 05/21/19 16:50 100 ml . DIRECTED ONE Administration Lorazepam 0.5 mg 05/21/19 15:39 05/21/19 15:49 Ativan PO 05/21/19 15:40 0.5 mg ONETIME ONE Administration Ondansetron HCl 4 mg 05/21/19 16:37 05/21/19 17:30 Zofran IVPUSH 05/21/19 16:38 4 mg ONETIME ONE Administration - Re-Assessments/Exams Free Text/Narrative Re-Assessment/Exam: 05/21/19 18:10 Patient's blood pressure came down after Ativan and after Zofran given. Labs reviewed, troponin within normal limits. EKG showed no ischemic changes. CT angio chest/abdomen pending. Pain was improved after Zofran, but returned when she went to CT. Pepcid IV given. Report given to Dr. Arevalo who will take over the patient. Departure - Departure Disposition: Home, Self-Care Clinical Impression: Hypertensive urgency, Gastroesophageal reflux disease Referrals: Josefina Dior, INDUSTRIAL TRUCK DRIVER [Primary Care Provider] - Forms: ED Department Discharge Additional Instructions: followup in clinic (can be nurse visit) for recheck blood pressure and to make sure your cuff is calibrated in the next couple days no sign of aneurysm or aortic dissection consider workup for secondary hypertension --discuss with PCP if worsening symptoms, chest pain, shortness of breath, epigastric pressure w/ sweats, or other concerning symptoms, return for re-evaluation - My Orders Last 24 Hours: My Active Orders 05/21/19 15:40 EKG Documentation Completion [RC] ASDIRECTED EKG 12 Lead [EK] Routine 05/21/19 17:30 Sodium Chloride 0.9% [Saline Flush] 10 ml FLUSH ASDIRECTED PRN - Assessment/Plan Last 24 Hours: My Active Orders 05/21/19 15:40 EKG Documentation Completion [RC] ASDIRECTED EKG 12 Lead [EK] Routine 05/21/19 17:30 Sodium Chloride 0.9% [Saline Flush] 10 ml FLUSH ASDIRECTED PRN <Ana Paula Arevalo - Last Filed: 05/21/19 22:13> Course - Re-Assessments/Exams Free Text/Narrative Re-Assessment/Exam: 05/21/[address] Frost. Awaiting CT scan report, if negative january discharge. call received from radiology, no PE seen, no aortic abnormalities, some calcifications noted in the coronary arteries. mild fatty liver disease is seen incidentally. Please see full report Discussed these results with patient, who is feeling much better after a dose of Pepcid IV. She also reports having had a stress test completed the summer. She will follow up with PCP and is much relieved by the workup today. All questions are answered Departure - Departure Time of Disposition: 19:14 Condition: Good
[2019-05-21] MEDS ORDERED: Sodium Chloride 0.9% 10 ML Syringe FLUSH PRN (17:30)
[2019-05-21] MEDS ORDERED: Famotidine/Normal Saline 20 MG in Premix Bag 1 BAG IV ONE (18:09)
[2019-05-22 02:50] VITALS: BP 113/72
[2019-05-22 03:23] VITALS: PULSE 60
--- NOTE | 2019-05-22 09:15 | CT ---
INDICATION: Chest pain, epigastric pain, family history of aortic aneurysm. COMPUTERIZED TOMOGRAPHY ANGIOGRAPHY OF THE CHEST WITH CONTRAST: Spiral 3.75 mm axial sections were obtained through the chest and abdomen with sagittal and coronal reconstructions, utilizing 100 mL Isovue 370 at 3 mL/second, 05/21/19 - compared with CT abdomen and pelvis of 11/29/11. Total exam DLP = 845.21 mGy- cm. Examination of the chest was obtained as noted above and revealed no evidence of aneurysmal dilatation of the thoracic aorta. There are some calcifications noted in the aorta and to a minimal extent in brachiocephalic vessels with moderate calcifications in coronary arteries. No mediastinal mass was identified. The heart is not enlarged. No pericardial effusion was seen. An active infiltrate or effusion was not identified. No nodular masses were seen. No evidence of pulmonary embolism was seen. IMPRESSION: Coronary artery disease, mild atherosclerotic change, no AAA. Report was called to Dr. Arevalo at approximately 1900 hours on 05/21/19. [facility]ITALMyke
--- NOTE | 2019-05-22 09:21 | CT ---
INDICATION: Chest pain, epigastric pain, family history of aortic aneurysm. COMPUTERIZED TOMOGRAPHY ANGIOGRAPHY OF THE ABDOMEN WITH CONTRAST: Spiral 3.75 mm axial sections were obtained through the chest and abdomen with sagittal and coronal reconstructions, utilizing 100 mL Isovue 370 at 3 mL/second, 05/21/19 - compared with CT abdomen and pelvis of 11/29/11. Total exam DLP = 845.21 mGy- cm. Examination of the abdomen was obtained as noted above. The liver appears somewhat low in density, suggesting the possibility of fatty liver. The gallbladder is absent, compatible with history of its removal. The aorta is normal in caliber with calcifications noted on the aorta, in the splenic artery, renal arteries, and iliac arteries. No significant appearing mass lesions, organomegaly, or free fluid collections were identified in the abdomen or pelvis. There is a low density lesion in the anterior cortex of the mid pole of the left kidney, which may represent a hamartoma. No obstructive uropathy was seen. It is possible that there is a calculus in the lower middle pole of the left kidney. No retroperitoneal mass was seen. IMPRESSION: 1. No evidence of abdominal aortic aneurysm. 2. Possible fatty liver. 3. Post cholecystectomy. 4. 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 There may also be a small calculus in the lower pole of the right kidney. 5. Calcifications in the arteries compatible with arteriosclerosis. 6. Hypertrophic degenerative changes and disk disease with vacuum disk phenomenon at L5-S1. Report was called to Dr. Arevalo at approximately 1900 hours on 05/21/19. [facility] CENTERMyke
== END 2019-05-21 19:45 | disposition home or self-care (01) ==
LOC: FB.ED 15:21
DX: K21.9 Gastro-esophageal reflux disease without esophagitis (principal); I16.0 Hypertensive urgency; Z98.890 Other specified postprocedural states
CPT/HCPCS: 36415; 71275; 74175; 80053; 82150; 84484; 85025; 93005; 96374; 96375; 99284; A9270; J2405; Q9967

== ENCOUNTER 2020-11-12 11:51 | Emergency (ER) | payer MEDICARE, OTHER ==
[2020-11-12] MEDS ORDERED: Sodium Chloride 0.9% 10 ML Syringe FLUSH PRN (12:25)
--- NOTE | 2020-11-12 13:22 | EDM.PDOC ---
ED HPI GENERAL MEDICAL PROBLEM - General Chief Complaint: Chest Pain Stated Complaint: high blood pressure, back pain Time Seen by Provider: 11/12/20 11:55 Source of Information: Reports: Patient History Limitations: Reports: No Limitations - History of Present Illness INITIAL COMMENTS - FREE TEXT/NARRATIVE: Patient presented to the ED because of upper back pain radiating to the left arm and chest. The pain is sharp,1/10. Denies having any nausea or vomiting. She said she is worried because her sister has an aortic aneurysm. mid back pain Pain Score (Numeric/FACES): 1 - Related Data Allergies Allergy/AdvReac Type Severity Reaction Status Date / Time No Known Allergies Allergy Verified 05/21/19 15:53 Home Meds: Home Meds Hydrochlorothiazide 25 mg PO DAILY 11/10/16 [History] Lisinopril 40 mg PO DAILY 11/10/16 [History] Metoprolol Succinate [Toprol XL] 200 mg PO DAILY 11/10/16 [History] Simvastatin 20 mg PO BEDTIME 11/10/16 [History] Escitalopram [Lexapro] 10 mg PO DAILY 05/21/19 [History] Levothyroxine Sodium [Synthroid] 25 mcg PO DAILY 05/21/19 [History] Pantoprazole 20 mg PO DAILY 05/21/19 [History] Past Medical History HEENT History: Reports: Impaired Vision, Other (See Below) Other HEENT History: otosclerosis Cardiovascular History: Reports: High Cholesterol, Hypertension Gastrointestinal History: Reports: GERD Genitourinary History: Reports: Renal Calculus [employer] History: Reports: Psychiatric History: Reports: Anxiety - Infectious Disease History Infectious Disease History: Reports: Chicken Pox, Measles, Mumps - Past Surgical History HEENT Surgical History: Reports: Tonsillectomy, Other (See Below) Other HEENT Surgeries/Procedures: right ear surgery for otoslcerosis GI Surgical History: Reports: Cholecystectomy, Colonoscopy, EGD Female Surgical History: Reports: Section Other Female Surgeries/Procedures: bilat ovaries removed, CS x 1 Neurological Surgical History: Reports: Discectomy - Past Imaging History Past Imaging History: Reports: Cardiac Echo (2016), CAT Scan (2011), Xray (02/19/2019) Social & Family History - Family History Family Medical History: No Pertinent Family History Cardiac: Reports: Aneurysm, Heart Valve Replacement, Hypertension, [place], Pacemaker - Tobacco Use Tobacco Use Status *Q: Former Tobacco User Used Tobacco, but Quit: Yes Month/Year Tobacco Last Used: 1979 - Caffeine Use Caffeine Use: Reports: None - Living Situation & Occupation Living situation: Reports: Occupation: Retired ED ROS GENERAL - Review of Systems Review Of Systems: See Below Constitutional: Reports: No Symptoms HEENT: Reports: No Symptoms Respiratory: Reports: No Symptoms Cardiovascular: Reports: Chest Pain Endocrine: Reports: No Symptoms GI/Abdominal: Reports: No Symptoms : Reports: No Symptoms Musculoskeletal: Reports: Back Pain Skin: Reports: No Symptoms Neurological: Reports: No Symptoms Psychiatric: Reports: No Symptoms ED EXAM, GENERAL - Physical Exam Exam: See Below Exam Limited By: No Limitations General Appearance: Alert, No Apparent Distress Ears: Normal External Exam, Normal Canal, Hearing Grossly Normal Nose: Normal Inspection, Normal Mucosa, No Blood Throat/Mouth: Normal Inspection, Normal Lips Head: Atraumatic, Normocephalic Neck: Normal Inspection, Supple, Non-Tender, Full Range of Motion Respiratory/Chest: No Respiratory Distress, Lungs Clear, Normal Breath Sounds, No Accessory Muscle Use, Chest Non-Tender Cardiovascular: Normal Peripheral Pulses, Regular Rate, Rhythm, No Edema, No Gallop, No JVD, No Murmur, No Rub GI/Abdominal: Normal Bowel Sounds, Soft, Non-Tender, No Organomegaly Back Exam: Normal Inspection, Full Range of Motion Extremities: Normal Inspection, Normal Range of Motion, Non-Tender Course - Vital Signs Text/Narrative:: Labs/EKG/CXR result was discussed with patient Last Recorded V/S: Last Vital Signs Temp 36.6 C 11/12/20 11:51 Pulse 62 11/12/20 11:51 Resp 22 H 11/12/20 11:51 BP 181/84 H 11/12/20 11:51 Pulse Ox 99 11/12/20 11:51 - Orders/Labs/Meds Orders: Active Orders 24 hr Category Date Time Status EKG Documentation Completion [RC] ASDIRECTED Care 11/12/20 12:27 Active Sodium Chloride 0.9% [Saline Flush] Med 11/12/20 12:25 Active 10 ml FLUSH ASDIRECTED PRN Saline Lock Insert [OM.PC] Routine Oth 11/12/20 12:25 Ordered EKG 12 Lead [EK] Routine Ther 11/12/20 12:25 Ordered Medication Orders Sodium Chloride (Saline Flush) 10 ml FLUSH ASDIRECTED PRN PRN Reason: Keep Vein Open Last Admin: 11/12/20 12:40 Dose: 10 ml Documented by: EARL Labs: Laboratory Tests 11/12/20 11/12/20 11/12/20 Range/Units 12:40 12:40 12:40 WBC 6.4 (3.0-10.3) x10-3/uL RBC 4.95 (3.60-5.20) x10(6)uL Hgb 14.7 (11.4-15.5) g/dL Hct 44.5 (34.2-48.2) % MCV 89.9 (76.7-100.5) fL MCH 29.7 (23.9-33.9) pg MCHC 33.0 (31.9-34.8) g/dL RDW 13.0 (12.3-16.5) % Plt Count 211 (151-488) x10(3)uL MPV 8.7 (7.1-12.4) fL Neut % (Auto) 63.7 (30.8-76.2) % Lymph % (Auto) 23.9 (18.4-52.1) % [place] % (Auto) 10.2 (4.4-15.7) % Eos % (Auto) 1.4 (0.6-8.1) % Baso % (Auto) 0.8 (0.2-1.5) % Neut # (Auto) 4.1 (1.5-6.3) x10-3/uL Lymph # (Auto) 1.5 (1.0-4.4) x10-3/uL [place] # (Auto) 0.7 (0.3-1.0) x10-3/uL Eos # (Auto) 0.1 (0.0-0.8) x10-3/uL Baso # (Auto) 0.0 (0.0-0.1) x10-3/uL Sodium 140 (135-145) mmol/L Potassium 4.2 (3.5-5.3) mmol/L Chloride 101 (100-110) mmol/L Carbon Dioxide 29 (21-32) mmol/L BUN 14 (7-18) mg/dL Creatinine 0.9 (0.55-1.02) mg/dL Est Cr Clr Drug Dosing 68.27 mL/min Estimated GFR (MDRD) > 60 (>60) BUN/Creatinine Ratio 15.6 (9-20) Glucose 113 (80-116) mg/dL Calcium 9.4 (8.6-10.2) mg/dL Total Bilirubin 0.6 (0.1-1.3) mg/dL AST 29 H D (5-25) IU/L ALT 45 H (12-36) U/L Alkaline Phosphatase 77 (56-112) IU/L Troponin I 11.5 (4.0-60.3) pg/mL Total Protein 7.4 (6.0-8.0) g/dL Albumin 4.0 (3.2-4.6) g/dL Globulin 3.4 g/dL Albumin/Globulin Ratio 1.2 Meds: Medications Generic Name Dose Route Start Last Admin Trade Name Freq PRN Reason Stop Dose Admin Sodium Chloride 10 ml 11/12/20 12:25 11/12/20 12:40 Saline Flush FLUSH 10 ml ASDIRECTED PRN Administration Keep Vein Open Departure - Departure Time of Disposition: 13:30 Disposition: Home, Self-Care 01 Condition: Good Clinical Impression: Atypical chest pain, Back pain, Anxiety reaction Instructions: Generalized Anxiety Disorder, Adult, Nonspecific Chest Pain, Adult, [id number] Referrals: Josefina Dior OIL DEVELOPER [Primary Care Provider] - Forms: ED Department Discharge Additional Instructions: Please read discharge instruction on non specific chest pain and anxiety Follow up as needed Sepsis Event Note (ED) - Evaluation Sepsis Screening Result: No Definite Risk - Focused Exam Vital Signs: Vital Signs Temp Pulse Resp BP Pulse Ox 11/12/20 11:51 36.6 C 62 22 H 181/84 H 99 - My Orders Last 24 Hours: My Active Orders 11/12/20 12:25 Sodium Chloride 0.9% [Saline Flush] 10 ml FLUSH ASDIRECTED PRN Saline Lock Insert [OM.PC] Routine EKG 12 Lead [EK] Routine 11/12/20 12:27 EKG Documentation Completion [RC] ASDIRECTED - Assessment/Plan Last 24 Hours: My Active Orders 11/12/20 12:25 Sodium Chloride 0.9% [Saline Flush] 10 ml FLUSH ASDIRECTED PRN Saline Lock Insert [OM.PC] Routine EKG 12 Lead [EK] Routine 11/12/20 12:27 EKG Documentation Completion [RC] ASDIRECTED
--- NOTE | 2020-11-12 16:06 | CR ---
INDICATION: Chest pain, left side twinges since yesterday. CHEST, ONE VIEW: An AP upright portable view of the chest 11/12/20 was compared with 02/19/19 and 11/10/16. The heart appears to be normal in size. The aorta is calcified in the arch area, but only minimally tortuous. Overlying EKG leads are noted. Elevated right hemidiaphragm is again noted, most likely anatomic. A definite active infiltrate or effusion was not identified. No definite evidence of CHF is noted. IMPRESSION: No acute process. MTDD
[2020-11-12 18:28] VITALS: BP 112/73; PULSE 61
== END 2020-11-12 13:50 | disposition home or self-care (01) ==
LOC: FB.ED 11:51
DX: M54.6 Pain in thoracic spine (principal); F41.1 Generalized anxiety disorder; E78.00 Pure hypercholesterolemia, unspecified; I10 Essential (primary) hypertension; K21.9 Gastro-esophageal reflux disease without esophagitis; Z79.899 Other long term (current) drug therapy; Z87.891 Personal history of nicotine dependence
CPT/HCPCS: 36415; 71045; 80053; 84484; 85025; 93005; 99283; 99285-25